=== PATIENT | female | born 1975 | race Asian ===

== ENCOUNTER 2019-02-04 06:49 | Inpatient (IN) | payer MEDICAID ==
[2019-01-31 15:57] LABS: BASOPHILS % (AUTO) 0.5 % (0-1); EOSINOPHILS # (AUTO) 0.1 X10'3 (0-0.9); EOSINOPHILS % (AUTO) 2.4 % (0-6); LYMPHOCYTES # (AUTO) 2.1 X10'3 (1.1-4.8); LYMPHOCYTES % (AUTO) 34.8 % (21-51); MEAN CORPUSCULAR HEMOGLOBIN 32.4 PG (27.0-31.0); MEAN CORPUSCULAR VOLUME 95.5 FL (78-98); MEAN PLATELET VOLUME 8.1 FL (7.4-10.4); MONOCYTES # (AUTO) 0.3 X10'3 (0-0.9); MONOCYTES % (AUTO) 4.9 % (2-12); NEUTROPHILS # (AUTO) 3.5 X10'3 (1.8-7.7); NEUTROPHILS % (AUTO) 57.4 % (42-75); PRE OP HEMATOCRIT 40.1 % (35.0-45.0); PRE OP HEMOGLOBIN 13.6 g/dL (12.0-16.0); PRE OP PLATELET COUNT 194 X10'3 (140-440); RED CELL DISTRIBUTION WIDTH 13.7 % (11.5-14.5)
[2019-01-31 16:11] LABS: PRE OP PROTIME 10.5 SECONDS (9.0-12.0)
[2019-01-31 16:12] LABS: CLARITY,URINE SLIGHTLY CLOUDY (Clear); COLOR,URINE STRAW (Yellow); GLUCOSE, URINE NEGATIVE (Neg); KETONES,URINE NEGATIVE (Neg); LEUKOCYTE ESTERASE ,URINE TRACE (Neg); NITRITES, URINE NEGATIVE (Neg); OCCULT BLOOD,URINE MODERATE (Neg); PH,URINE 5.5 (4.8-8.0); PROTEIN,URINE NEGATIVE (Neg); UROBILINOGEN,URINE 0.2 E.U/dL (0.2-1.0)
[2019-01-31 16:12] LABS: ALBUMIN/GLOBULIN RATIO 1.1 (1.1-1.5); ALKALINE PHOSPHATASE 42 IU/L (46-116); BLOOD UREA NITROGEN 16 MG/DL (7-18); BUN/CREATININE RATIO 21.9 (6.6-38.0); CALCIUM 8.5 MG/DL (8.5-10.1); CHLORIDE 105 MMOL/L (99-107); CREATININE 0.73 MG/DL (0.40-0.90); PRE OP ALT 21 U/L (30-65); PRE OP ANION GAP 6 (8-16); PRE OP AST 13 U/L (10-37); PRE OP BILIRUB, TOTAL 0.4 MG/DL (0.0-1.0); PRE OP GLUCOSE 102 MG/DL (70-104); PRE OP POTASSIUM 3.7 MMOL/L (3.4-5.1); PRE OP SODIUM 141 MMOL/L (135-145); TOTAL CARBON DIOXIDE 30.2 MMOL/L (24-32); TOTAL PROTEIN 7.6 G/DL (6.4-8.2); eGFR 87 ML/MIN
[2019-01-31 16:14] LABS: UA COLLECTION TYPE CLN CATCH MIDSTREAM
[2019-01-31 16:19] LABS: MUCUS STRANDS MANY /LPF (Neg); SQUAMOUS EPITHELIAL CELL,UR MANY /LPF (FEW)
[2019-01-31 16:20] LABS: TRANSITIONAL EPI CELLS,URINE FEW /HPF
[2019-01-31 16:21] LABS: HYALINE CASTS 0-3 /LPF (NEGATIVE)
[2019-01-31 16:23] LABS: BACTERIA,URINE 2+ /HPF (Neg); RBC,URINE 0-2 /HPF (0-2)
[2019-02-04] VITALS (17 sets, daily range): BP systolic 104–127; BP diastolic 53–78
[~2019-02-04] VITALS: Ht 167.6 cm; Wt 49.9 kg
[~2019-02-04 06:49] MED LIST: NO HOME MEDS; ceFOXitin 2 GM ADDVANTGE BAG 50 ML IV ONE; famotidine 10mg tablet PO ONE
[2019-02-04] MEDS: ringers solution, lacted 1,000 ML IV SCH ×2 (07:33→14:09)
[2019-02-04] MEDS ORDERED: BUPIVAcaine/PF 2.5 mg/ml (0.25%) 30ml vial ONE (08:01)
[2019-02-04] MEDS ORDERED: ringers solution, lacted 1,000 ML IV SCH (08:06)
[2019-02-04] MEDS ORDERED: proCHLORperazine 10 MG/2 ml inj IV PRN (08:10)
[2019-02-04] MEDS ORDERED: ketorolac trometh. 30mg/ml inj. IV ONE (08:10)
[2019-02-04] MEDS ORDERED: meperidine/PF 25mg/ml syringe IV PRN ×3 (08:10)
[2019-02-04] MEDS ORDERED: ondansetron/PF 4mg/2ml inj IV PRN (08:10)
[2019-02-04] MEDS ORDERED: morphine 4 MG/ML inj SYRINge IV PRN ×2 (08:10)
[2019-02-04] MEDS ORDERED: sevoflurane 250ml liquid IH ONE (08:16)
[2019-02-04] MEDS ORDERED: dexamethasone sod phosphate 10mg/ml inj ONE (08:16)
[2019-02-04] MEDS ORDERED: ondansetron/PF 4mg/2ml inj ONE (08:16)
[2019-02-04] MEDS ORDERED: midazolam 2 mg/2 ml injection ONE (08:19)
[2019-02-04] MEDS ORDERED: fentaNYL/PF 50MCG/1 ML 2ML syringe ONE (08:19)
[2019-02-04] MEDS ORDERED: propofol inj 20 ML IV ONE (08:21)
[2019-02-04] MEDS ORDERED: rocuronium 10mg/ml inj IV ONE (08:22)
[2019-02-04] MEDS ORDERED: acetaminophen 1,000mg/100ml IV 100 ML IV ONE (10:46)
--- NOTE | 2019-02-04 11:17 | NUR ---
Received from OR via SURGICAL BED , accompanied by Anesthesiologist JOLYNN and report given by Anesthesiolgist. PATIENT WITH 20G PIV IN RIGHT UE RUNNING LR AT 100. DENIES PAIN AT THIS TIME. LOW LATERAL ISLAND DRESSING PRESENT AND IS CDI. PATIENT WITH SCDS DONNED. 10L MASK ON WITH 100% SATURATIONS. Addendum: 02/04/19 at 1138 by Ronaldo Hernandez RN, RN Amended: Links added.
[2019-02-04] MEDS ORDERED: tranexamic acid inj. 1,000 MG in normal saline 100ml IV soln 100 ML IV ONE (11:25)
[2019-02-04 11:35] LABS: ISTAT ANION GAP 10 (8-12); ISTAT BUN 15 mg/dL (6-19); ISTAT CL 103 mmol/L (99-107); ISTAT CREATININE 0.6 mg/dL (0.6-1.1); ISTAT K 3.5 mmol/L (3.5-5.1); ISTAT NA 138 mmol/L (135-145); ISTAT TOTAL CO2 25 mmol/L (24-32); ISTAT eGFR > 90 ML/MIN
[2019-02-04 11:36] LABS: ISTAT GLUCOSE 152 mg/dL (70-104); ISTAT HGB 10.5 g/dl (12.0-16.0); ISTAT Hct 31 %PCV (35-48); ISTAT IONIZED CALCIUM 1.12 mmol/L (1.03-1.32)
[2019-02-04] MEDS ORDERED: naloxone 0.4 mg/ml inj IV PRN (12:00)
[2019-02-04] MEDS ORDERED: HYDROcodone/acetaminophen 10/325mg tab PO PRN (12:00)
[2019-02-04] MEDS ORDERED: normal saline 500ml IV soln 500 ML IV PRN (12:00)
[2019-02-04] MEDS ORDERED: CADD PCA waste documentation MC PRN (12:00)
[2019-02-04] MEDS ORDERED: HYDROcodone/acetaminophen 5mg/325mg tablet PO PRN (12:00)
[2019-02-04] MEDS ORDERED: mag hydrox/Alum hydrox/simeth 30ml oral suspension PO PRN (12:00)
[2019-02-04] MEDS ORDERED: LORazepam 2 mg/ml vial IV PRN (12:00)
[2019-02-04] MEDS ORDERED: magnesium hydroxide 30ml (MOM) UD suspension PO PRN (12:00)
[2019-02-04] MEDS ORDERED: temazepam 15mg capsule PO PRN (12:00)
--- NOTE | 2019-02-04 12:27 | NUR ---
ALL CRITERIA FOR TRANSFER TO THE FLOOR HAS BEEN ACHIEVED. VSS. BED LOW, CALL LIGHT AND VS. SET IN PLACE. RN PRESENT TO ACCEPT CARE. PATIENT RESTING COMFORTABLY IN BED. BELONGINGS SENT WITH PATIENT. DRESSINGS CDI. PATIENT LOW ANTERIOR ISLAND DRESSING STILL CDI CURRENTLY. RN PRESENT TO REASSESS. PATIENT MINIMALLY VERBAL TO QUESTIONS, WOULD NOT OFFER PAIN # WITHOUT MUCH COAXING. MEDICATED PRIOR TO DC TO FLOOR. PATIENTS RN PRESENT TO ACCEPT PATIENT. Addendum: 02/04/19 at 1239 by Ronaldo Smith - JASON RN Amended: Links added.
--- NOTE | 2019-02-04 13:03 | NUR ---
CADD MORPHINE IS NOT AVAILABLE FOR THIS PT. MESSAGED PHARMACY TO SEND. WILL SET UP WHEN IT IS AVAILABLE
--- NOTE | 2019-02-04 13:15 | NUR ---
Pt is quite groggy. will try to give mylecon chew when she is more alert
[2019-02-04] MEDS: morphine/NS 5 mg/ml CADD 50 ML IV SCH ×6 (13:34→23:00)
[2019-02-04] MEDS: simethicone 80mg chew tab PO SCH ×2 (15:14→20:21)
[2019-02-04 16:28] LABS: HEMATOCRIT 33.4 % (35.0-45.0); HEMOGLOBIN 11.3 g/dl (12.0-16.0); MEAN CORPUSCULAR HEMOGLOBIN 32.3 PG (27.0-31.0); MEAN CORPUSCULAR HGB CONC 33.8 g/dL (33.0-36.5); MEAN CORPUSCULAR VOLUME 95.5 FL (78-98); MEAN PLATELET VOLUME 8.2 FL (7.4-10.4); PLATELET COUNT 197 X10'3 (140-440); RED CELL DISTRIBUTION WIDTH 13.4 % (11.5-14.5); WHITE BLOOD COUNT 20.1 X10'3 (4.5-11.0)
[2019-02-04] MEDS: ceFAZolin 1GM/D5W- ADD-VANTAGE 50 ML IV SCH (16:31)
--- NOTE | 2019-02-04 18:10 | NUR ---
Problems reprioritized. Patient report given, questions answered & plan of care reviewed with mitzi dubose.
--- NOTE | 2019-02-04 18:54 | NUR ---
Patient in room [facility]. I have received report from JASON Wang and had the opportunity to ask questions and assume patient care.
[2019-02-04] MEDS ORDERED: ketorolac tromethamine 15mg/ml inj. IV PRN (19:10)
[2019-02-04] MEDS ORDERED: morphine/NS 5 mg/ml CADD 50 ML IV SCH ×2 (20:04→20:10)
[2019-02-04] MEDS: sennosides/docusate sodium tablet PO SCH (20:20)
[2019-02-04] MEDS: FAMOTIDINE IV SCH (20:25)
[2019-02-04] MEDS: NORMAL SALINE IV SCH (20:25)
[2019-02-05] VITALS: BP 108/72
[2019-02-05] MEDS: ceFAZolin 1GM/D5W- ADD-VANTAGE 50 ML IV SCH ×2 (00:18→09:25)
[2019-02-05] MEDS: morphine/NS 5 mg/ml CADD 50 ML IV SCH ×12 (01:00→23:00)
[2019-02-05] MEDS ORDERED: ringers solution, lacted 1,000 ML IV SCH (01:25)
[2019-02-05 03:56] VITALS: BP 103/63
[2019-02-05 05:40] LABS: ALANINE AMINOTRANSFERASE 18 U/L (12-78); ALBUMIN 3.1 G/DL (3.4-5.0); ALBUMIN/GLOBULIN RATIO 1.2 (1.1-1.5); ALKALINE PHOSPHATASE 37 IU/L (46-116); ANION GAP 5 (8-16); ASPARTATE AMINO TRANSFERASE 21 U/L (10-37); BILIRUBIN,TOTAL 0.8 MG/DL (0.1-1.0); BLOOD UREA NITROGEN 19 MG/DL (7-18); BUN/CREATININE RATIO 14.4 (6.6-38.0); CHLORIDE 102 MMOL/L (99-107); CREATININE 1.32 MG/DL (0.40-0.90); GLUCOSE 118 MG/DL (70-104); POTASSIUM 4.4 MMOL/L (3.5-5.1); SODIUM 134 MMOL/L (135-145); TOTAL CARBON DIOXIDE 26.7 MMOL/L (24-32); TOTAL PROTEIN 5.7 G/DL (6.4-8.2); eGFR 44 ML/MIN
[2019-02-05 05:59] LABS: BASOPHILS % (AUTO) 0.1 % (0-1); EOSINOPHILS % (AUTO) 0 % (0-6); HEMATOCRIT 29.4 % (35.0-45.0); HEMOGLOBIN 10.1 g/dl (12.0-16.0); LYMPHOCYTES # (AUTO) 1.6 X10'3 (1.1-4.8); LYMPHOCYTES % (AUTO) 9.3 % (21-51); MEAN CORPUSCULAR HEMOGLOBIN 32.6 PG (27.0-31.0); MEAN CORPUSCULAR HGB CONC 34.3 g/dL (33.0-36.5); MEAN PLATELET VOLUME 8.8 FL (7.4-10.4); MONOCYTES # (AUTO) 1.4 X10'3 (0-0.9); MONOCYTES % (AUTO) 8.2 % (2-12); NEUTROPHILS # (AUTO) 14.4 X10'3 (1.8-7.7); NEUTROPHILS % (AUTO) 82.4 % (42-75); PLATELET COUNT 187 X10'3 (140-440); RED CELL DISTRIBUTION WIDTH 13.7 % (11.5-14.5); WHITE BLOOD COUNT 17.5 X10'3 (4.5-11.0)
--- NOTE | 2019-02-05 06:09 | NUR ---
Problems reprioritized. Patient report given, questions answered & plan of care reviewed with JASON Wang.
[2019-02-05 07:00] VITALS: BP_SYST 106; BP_SYST 109; BP_DIAS 60; BP_DIAS 65
--- NOTE | 2019-02-05 09:00 | NUR ---
SENT A MESSAGE TO PHARMACY ASKING FOR PEPSI IV. NOT AVAILABLE TO ADMIN TO PT
[2019-02-05] MEDS: sennosides/docusate sodium tablet PO SCH ×2 (09:25→19:37)
[2019-02-05] MEDS: simethicone 80mg chew tab PO SCH ×3 (09:25→19:37)
[2019-02-05] MEDS: ondansetron/PF 4mg/2ml inj IV PRN ×2 (09:26→15:28)
[2019-02-05] MEDS: NORMAL SALINE IV SCH ×2 (10:27→21:13)
[2019-02-05] MEDS: FAMOTIDINE IV SCH ×2 (10:27→21:13)
[2019-02-05 11:30] LABS: BASOPHILS # (AUTO) 0.1 X10'3 (0-0.2); BASOPHILS % (AUTO) 0.7 % (0-1); EOSINOPHILS % (AUTO) 0.1 % (0-6); HEMATOCRIT 27.8 % (35.0-45.0); HEMOGLOBIN 9.5 g/dl (12.0-16.0); LYMPHOCYTES % (AUTO) 6.8 % (21-51); MEAN CORPUSCULAR HEMOGLOBIN 32.2 PG (27.0-31.0); MEAN CORPUSCULAR HGB CONC 34.3 g/dL (33.0-36.5); MEAN PLATELET VOLUME 8.6 FL (7.4-10.4); MONOCYTES # (AUTO) 0.8 X10'3 (0-0.9); MONOCYTES % (AUTO) 5.5 % (2-12); NEUTROPHILS # (AUTO) 12.8 X10'3 (1.8-7.7); NEUTROPHILS % (AUTO) 86.9 % (42-75); PLATELET COUNT 170 X10'3 (140-440); RED BLOOD COUNT 2.95 X10'6 (4.20-5.60); RED CELL DISTRIBUTION WIDTH 13.7 % (11.5-14.5); WHITE BLOOD COUNT 14.7 X10'3 (4.5-11.0)
[2019-02-05 11:34] LABS: ANION GAP 5 (8-16); BLOOD UREA NITROGEN 20 MG/DL (7-18); BUN/CREATININE RATIO 15.3 (6.6-38.0); CALCIUM 7.5 MG/DL (8.5-10.1); CHLORIDE 101 MMOL/L (99-107); CREATININE 1.31 MG/DL (0.40-0.90); GLUCOSE 123 MG/DL (70-104); POTASSIUM 4.1 MMOL/L (3.5-5.1); SODIUM 132 MMOL/L (135-145); eGFR 44 ML/MIN
[2019-02-05 11:35] LABS: ALANINE AMINOTRANSFERASE 19 U/L (12-78); ALBUMIN 2.8 G/DL (3.4-5.0); ALBUMIN/GLOBULIN RATIO 1.1 (1.1-1.5); ALKALINE PHOSPHATASE 35 IU/L (46-116); ASPARTATE AMINO TRANSFERASE 23 U/L (10-37); BILIRUBIN,TOTAL 0.8 MG/DL (0.1-1.0); TOTAL PROTEIN 5.4 G/DL (6.4-8.2)
[2019-02-05] MEDS ORDERED: metoclopramide 5 mg/ml inj IV PRN (11:50)
[2019-02-05 16:32] LABS: BASOPHILS # (AUTO) 0.2 X10'3 (0-0.2); BASOPHILS % (AUTO) 1.8 % (0-1); EOSINOPHILS % (AUTO) 0.1 % (0-6); HEMATOCRIT 27.1 % (35.0-45.0); HEMOGLOBIN 9.4 g/dl (12.0-16.0); LYMPHOCYTES # (AUTO) 0.9 X10'3 (1.1-4.8); LYMPHOCYTES % (AUTO) 6.4 % (21-51); MEAN CORPUSCULAR HEMOGLOBIN 32.5 PG (27.0-31.0); MEAN CORPUSCULAR HGB CONC 34.8 g/dL (33.0-36.5); MEAN CORPUSCULAR VOLUME 93.5 FL (78-98); MEAN PLATELET VOLUME 8.4 FL (7.4-10.4); MONOCYTES # (AUTO) 0.5 X10'3 (0-0.9); MONOCYTES % (AUTO) 3.4 % (2-12); NEUTROPHILS # (AUTO) 12.1 X10'3 (1.8-7.7); NEUTROPHILS % (AUTO) 88.3 % (42-75); PLATELET COUNT 163 X10'3 (140-440); RED CELL DISTRIBUTION WIDTH 13.6 % (11.5-14.5); WHITE BLOOD COUNT 13.7 X10'3 (4.5-11.0)
[2019-02-05 16:48] LABS: ALANINE AMINOTRANSFERASE 19 U/L (12-78); ALBUMIN 2.8 G/DL (3.4-5.0); ALBUMIN/GLOBULIN RATIO 1.1 (1.1-1.5); ALKALINE PHOSPHATASE 40 IU/L (46-116); ANION GAP 5 (8-16); ASPARTATE AMINO TRANSFERASE 24 U/L (10-37); BILIRUBIN,TOTAL 0.9 MG/DL (0.1-1.0); BLOOD UREA NITROGEN 17 MG/DL (7-18); BUN/CREATININE RATIO 12.6 (6.6-38.0); CALCIUM 7.5 MG/DL (8.5-10.1); CHLORIDE 99 MMOL/L (99-107); CREATININE 1.35 MG/DL (0.40-0.90); GLUCOSE 115 MG/DL (70-104); POTASSIUM 4.5 MMOL/L (3.5-5.1); SODIUM 131 MMOL/L (135-145); TOTAL CARBON DIOXIDE 27.4 MMOL/L (24-32); TOTAL PROTEIN 5.4 G/DL (6.4-8.2); eGFR 43 ML/MIN
--- NOTE | 2019-02-05 18:22 | NUR ---
Problems reprioritized. Patient report given, questions answered & plan of care reviewed with WONG GOMEZ.
[2019-02-05 18:30] VITALS: BP 110/74
--- NOTE | 2019-02-05 18:42 | NUR ---
Received report from Kathleen GOMEZ pt is laying in bed, visitor at bedside, in no apparent distress, call light and items of freq use within reach
[2019-02-05] MEDS: normal saline 1000ml 1,000 ML IV SCH (19:40)
[2019-02-06] VITALS: BP 113/72
[2019-02-06] MEDS: morphine/NS 5 mg/ml CADD 50 ML IV SCH ×12 (01:00→23:00)
[2019-02-06] MEDS: normal saline 1000ml 1,000 ML IV SCH ×3 (05:23→17:13)
[2019-02-06 05:29] LABS: ALANINE AMINOTRANSFERASE 16 U/L (12-78); ALBUMIN 2.8 G/DL (3.4-5.0); ALKALINE PHOSPHATASE 50 IU/L (46-116); ANION GAP 5 (8-16); ASPARTATE AMINO TRANSFERASE 20 U/L (10-37); BILIRUBIN,TOTAL 0.8 MG/DL (0.1-1.0); BLOOD UREA NITROGEN 16 MG/DL (7-18); BUN/CREATININE RATIO 11.9 (6.6-38.0); CALCIUM 7.8 MG/DL (8.5-10.1); CHLORIDE 102 MMOL/L (99-107); CREATININE 1.34 MG/DL (0.40-0.90); GLUCOSE 116 MG/DL (70-104); SODIUM 134 MMOL/L (135-145); TOTAL CARBON DIOXIDE 27.4 MMOL/L (24-32); TOTAL PROTEIN 5.6 G/DL (6.4-8.2); eGFR 43 ML/MIN
[2019-02-06 06:00] LABS: BASOPHILS % (AUTO) 0 % (0-1); EOSINOPHILS % (AUTO) 0.2 % (0-6); HEMATOCRIT 28.6 % (35.0-45.0); HEMOGLOBIN 9.8 g/dl (12.0-16.0); LYMPHOCYTES # (AUTO) 0.8 X10'3 (1.1-4.8); LYMPHOCYTES % (AUTO) 7.2 % (21-51); MEAN CORPUSCULAR HEMOGLOBIN 32.7 PG (27.0-31.0); MEAN CORPUSCULAR HGB CONC 34.2 g/dL (33.0-36.5); MEAN CORPUSCULAR VOLUME 95.6 FL (78-98); MEAN PLATELET VOLUME 8.7 FL (7.4-10.4); MONOCYTES # (AUTO) 0.7 X10'3 (0-0.9); MONOCYTES % (AUTO) 5.8 % (2-12); NEUTROPHILS # (AUTO) 9.8 X10'3 (1.8-7.7); NEUTROPHILS % (AUTO) 86.8 % (42-75); PLATELET COUNT 171 X10'3 (140-440); RED CELL DISTRIBUTION WIDTH 13.7 % (11.5-14.5); WHITE BLOOD COUNT 11.3 X10'3 (4.5-11.0)
--- NOTE | 2019-02-06 06:43 | NUR ---
Gave report to Fauzia GOMEZ pt is resting on RA, in no apparent distress, call light and items of freq use within reach.
[2019-02-06 07:00] VITALS: BP 113/74
[2019-02-06] MEDS: FAMOTIDINE IV SCH ×2 (07:30→20:01)
[2019-02-06] MEDS: NORMAL SALINE IV SCH ×2 (07:30→20:01)
[2019-02-06] MEDS: sennosides/docusate sodium tablet PO SCH ×2 (07:31→20:00)
[2019-02-06] MEDS: simethicone 80mg chew tab PO SCH ×3 (07:31→17:15)
--- NOTE | 2019-02-06 10:23 | NUR ---
PICKED UP FOR CT SCAN.
[2019-02-06] MEDS: proCHLORperazine 10 MG/2 ml inj IV PRN ×2 (12:15→23:42)
[2019-02-06 12:34] VITALS: BP 119/76
[2019-02-06] MEDS: metoclopramide 5 mg/ml inj IV SCH ×2 (13:18→20:02)
--- NOTE | 2019-02-06 13:28 | NUR ---
mays catheter dc'd per MD order. Patient tolerated well.
--- NOTE | 2019-02-06 18:23 | NUR ---
Problems reprioritized. Patient report given, questions answered & plan of care reviewed with JASON Mitchell.
[2019-02-06] MEDS: ondansetron/PF 4mg/2ml inj IV PRN (18:45)
[2019-02-06 20:00] VITALS: BP 125/74
--- NOTE | 2019-02-06 22:22 | NUR ---
Patient in room [facility]. I have received report from JASON Cage and had the opportunity to ask questions and assume patient care. Addendum: 02/06/19 at 2223 by Marisa Bhatia RN Amended: Links added.
[2019-02-06 23:52] VITALS: BP 103/66
[2019-02-07] MEDS: morphine/NS 5 mg/ml CADD 50 ML IV SCH ×5 (01:00→09:00)
[2019-02-07] MEDS: metoclopramide 5 mg/ml inj IV SCH ×4 (02:12→19:33)
[2019-02-07] MEDS: normal saline 1000ml 1,000 ML IV SCH ×3 (02:17→19:33)
[2019-02-07 06:00] VITALS: BP 114/77
--- NOTE | 2019-02-07 06:38 | NUR ---
Problems reprioritized. Patient report given, questions answered & plan of care reviewed with JASON Cuellar. Addendum: 02/07/19 at 0639 by Marisa Bhatia RN Amended: Links added.
--- NOTE | 2019-02-07 06:49 | NUR ---
Patient in room [facility]. I have received report from JASON Cunningham and had the opportunity to ask questions and assume patient care.
[2019-02-07] MEDS: simethicone 80mg chew tab PO SCH ×6 (08:00→18:04)
[2019-02-07] MEDS: sennosides/docusate sodium tablet PO SCH ×4 (08:00→19:33)
[2019-02-07] MEDS: FAMOTIDINE IV SCH ×2 (09:31→19:33)
[2019-02-07] MEDS: NORMAL SALINE IV SCH ×2 (09:31→19:33)
[2019-02-07 11:00] VITALS: BP 117/76
[2019-02-07] MEDS ORDERED: morphine 2 MG/ML inj. syringe IV PRN ×2 (11:00)
[2019-02-07] MEDS: methylnaltrexone br 12mg/0.6ml inj***SubQ only SQ SCH (11:45)
--- NOTE | 2019-02-07 18:30 | NUR ---
Problems reprioritized. Patient report given, questions answered & plan of care reviewed with JASON Cunningham.
[2019-02-07 20:00] VITALS: BP 126/80
--- NOTE | 2019-02-07 22:07 | NUR ---
Patient in room [facility]. I have received report from JASON Cuellar and had the opportunity to ask questions and assume patient care. Addendum: 02/07/19 at 2207 by Marisa Bhatia RN Amended: Links added.
[2019-02-08] VITALS: BP 111/72
[2019-02-08] MEDS: metoclopramide 5 mg/ml inj IV SCH ×3 (02:12→13:28)
[2019-02-08 05:29] LABS: BASOPHILS % (AUTO) 0.2 % (0-1); EOSINOPHILS % (AUTO) 0.6 % (0-6); HEMATOCRIT 24.2 % (35.0-45.0); HEMOGLOBIN 8.5 g/dl (12.0-16.0); LYMPHOCYTES # (AUTO) 0.8 X10'3 (1.1-4.8); LYMPHOCYTES % (AUTO) 11.3 % (21-51); MEAN CORPUSCULAR HGB CONC 35.4 g/dL (33.0-36.5); MEAN CORPUSCULAR VOLUME 93.4 FL (78-98); MONOCYTES # (AUTO) 0.8 X10'3 (0-0.9); MONOCYTES % (AUTO) 11.2 % (2-12); NEUTROPHILS # (AUTO) 5.5 X10'3 (1.8-7.7); NEUTROPHILS % (AUTO) 76.7 % (42-75); PLATELET COUNT 204 X10'3 (140-440); RED BLOOD COUNT 2.59 X10'6 (4.20-5.60); RED CELL DISTRIBUTION WIDTH 13.5 % (11.5-14.5); WHITE BLOOD COUNT 7.1 X10'3 (4.5-11.0)
[2019-02-08 05:40] LABS: ALANINE AMINOTRANSFERASE 14 U/L (12-78); ALBUMIN 2.3 G/DL (3.4-5.0); ALBUMIN/GLOBULIN RATIO 0.8 (1.1-1.5); ALKALINE PHOSPHATASE 41 IU/L (46-116); ANION GAP 7 (8-16); ASPARTATE AMINO TRANSFERASE 11 U/L (10-37); BILIRUBIN,TOTAL 0.7 MG/DL (0.1-1.0); BLOOD UREA NITROGEN 18 MG/DL (7-18); BUN/CREATININE RATIO 19.4 (6.6-38.0); CALCIUM 7.6 MG/DL (8.5-10.1); CHLORIDE 105 MMOL/L (99-107); CREATININE 0.93 MG/DL (0.40-0.90); GLUCOSE 94 MG/DL (70-104); POTASSIUM 3.6 MMOL/L (3.5-5.1); SODIUM 136 MMOL/L (135-145); TOTAL CARBON DIOXIDE 23.6 MMOL/L (24-32); TOTAL PROTEIN 5.1 G/DL (6.4-8.2); eGFR 65 ML/MIN
--- NOTE | 2019-02-08 06:17 | NUR ---
Problems reprioritized. Patient report given, questions answered & plan of care reviewed with JASON Ortiz. Addendum: 02/08/19 at 0617 by Marisa Bhatia RN Amended: Links added.
[2019-02-08 07:19] VITALS: BP 117/76
[2019-02-08] MEDS: NORMAL SALINE IV SCH (10:05)
[2019-02-08] MEDS: FAMOTIDINE IV SCH (10:05)
[2019-02-08] MEDS: simethicone 80mg chew tab PO SCH ×3 (10:06→17:32)
[2019-02-08] MEDS: sennosides/docusate sodium tablet PO SCH ×2 (10:16→20:00)
[2019-02-08 11:00] VITALS: BP 126/85
--- NOTE | 2019-02-08 11:01 | NUR ---
Spoke to MD Shabazz this AM. She is noticing an improvement in medical condition and is considering a discharge. Requesting home health and home PT for pt as pt. does not feel comfortable going home without care. Spoke with case management Tiffany. Tiffany is not sure when the home health nurse will be able to make it to pt.'s house r/t holiday but she is working on the process. Pt. states she feels uncomfortable going home because she "will not have nursing to check on her constantly and will not have a call light". She is also concerned that she has not eaten a full meal without becoming nauseous. Pt. does have positive BS, passing gas and has had a small loose BM this AM. She states she has not been nauseous this AM, but that her 14 yo son will not be able to handle her coming home. MD Vazquez made aware. See new orders. Will continue to monitor case management results and notify MD Shabazz of any changes.
[2019-02-08] MEDS: HYDROcodone/acetaminophen 10/325mg tab PO PRN (13:28)
--- NOTE | 2019-02-08 16:16 | NUR ---
Nutrition consult re: "pt not eating, education on proper diet for healing". Pt s/p abdominal hysterectomy with extensive lysis of adhesions, debulking of stage IV endometriosis, bilateral salpingo-oophorectomy per MD note. Patient's diet was just advanced to regular, previously on full liquid diet. No documentation of PO intake since admit. D/w RN who reports pt isn't eating well likely d/t food preferences. Pt seen at bedside reports a low appetite but that it's improving. Pt reports she doesn't like foods that are too crunchy, too hot, or too cold. Pt agreeable to soft food TID and room temperature beverages. Pt also requests steamed vegetables rather than cold side items such as salads. Food preferences d/w dietary. RD encouraged PO intake of meals. Pt reports fear of getting nauseous after eating. Per RN pt receiving antinausea medication which is confirmed in med list. Pt denies any food allergies or difficulty chewing/swallowing. Last documented BM is 02/04 however pt reports diarrhea with two BMs today. Pt agrees to applesauce with dinner tonight, d/w dietary. RD contact information provided. Will continue to follow. Addendum: 02/08/19 at [address] Amended: Links added.
[2019-02-08] MEDS ORDERED: LORazepam 1 MG tablet PO PRN (17:40)
--- NOTE | 2019-02-08 19:05 | NUR ---
Gave report to Marisa GOMEZ
[2019-02-08 20:00] VITALS: BP 111/85
[2019-02-08] MEDS ORDERED: metoclopramide 10mg tablet PO PRN (20:00)
[2019-02-08] MEDS: famotidine 10mg tablet PO SCH (20:04)
--- NOTE | 2019-02-08 20:11 | NUR ---
PT HAS NO IV ACCESS WHEN ASSESSED
--- NOTE | 2019-02-08 20:38 | NUR ---
Patient in room [facility]. I have received report from JASON Ortiz and had the opportunity to ask questions and assume patient care. Addendum: 02/08/19 at 2038 by Marisa Bhatia RN Amended: Links added.
--- NOTE | 2019-02-08 21:15 | NUR ---
Problems reprioritized. Patient report given, questions answered & plan of care reviewed with Bess Bradshaw RN. Addendum: 02/08/19 at 2117 by Marisa Bhatia RN Amended: Links added.
[2019-02-09] VITALS: BP 114/77
[2019-02-09 06:21] LABS: BASOPHILS % (AUTO) 0.3 % (0-1); EOSINOPHILS # (AUTO) 0.1 X10'3 (0-0.9); EOSINOPHILS % (AUTO) 2.1 % (0-6); HEMATOCRIT 23.5 % (35.0-45.0); HEMOGLOBIN 8.2 g/dl (12.0-16.0); LYMPHOCYTES # (AUTO) 0.8 X10'3 (1.1-4.8); LYMPHOCYTES % (AUTO) 15.6 % (21-51); MEAN CORPUSCULAR HEMOGLOBIN 32.9 PG (27.0-31.0); MEAN CORPUSCULAR HGB CONC 34.7 g/dL (33.0-36.5); MEAN CORPUSCULAR VOLUME 94.8 FL (78-98); MONOCYTES # (AUTO) 0.7 X10'3 (0-0.9); MONOCYTES % (AUTO) 12.8 % (2-12); NEUTROPHILS # (AUTO) 3.6 X10'3 (1.8-7.7); NEUTROPHILS % (AUTO) 69.2 % (42-75); PLATELET COUNT 211 X10'3 (140-440); RED BLOOD COUNT 2.48 X10'6 (4.20-5.60); RED CELL DISTRIBUTION WIDTH 13.4 % (11.5-14.5); WHITE BLOOD COUNT 5.2 X10'3 (4.5-11.0)
--- NOTE | 2019-02-09 06:38 | NUR ---
Problems reprioritized. Patient report given, questions answered & plan of care reviewed with JASON Ho.
--- NOTE | 2019-02-09 06:39 | NUR ---
Patient in room [facility]. I have received report from Bess Bradshaw RN and had the opportunity to ask questions and assume patient care.
[2019-02-09 06:47] LABS: ALANINE AMINOTRANSFERASE 13 U/L (12-78); ALBUMIN 2.2 G/DL (3.4-5.0); ALBUMIN/GLOBULIN RATIO 0.8 (1.1-1.5); ALKALINE PHOSPHATASE 36 IU/L (46-116); ANION GAP 6 (8-16); ASPARTATE AMINO TRANSFERASE 12 U/L (10-37); BILIRUBIN,TOTAL 0.5 MG/DL (0.1-1.0); BLOOD UREA NITROGEN 13 MG/DL (7-18); CALCIUM 7.5 MG/DL (8.5-10.1); CHLORIDE 103 MMOL/L (99-107); GLUCOSE 86 MG/DL (70-104); POTASSIUM 3.2 MMOL/L (3.5-5.1); SODIUM 135 MMOL/L (135-145); TOTAL CARBON DIOXIDE 26.3 MMOL/L (24-32); eGFR 60 ML/MIN
[2019-02-09 06:58] VITALS: BP 105/65
[2019-02-09] MEDS: methylnaltrexone br 12mg/0.6ml inj***SubQ only SQ SCH (08:00)
[2019-02-09] MEDS: sennosides/docusate sodium tablet PO SCH (08:00)
[2019-02-09] MEDS: HYDROcodone/acetaminophen 10/325mg tab PO PRN (09:01)
[2019-02-09] MEDS: simethicone 80mg chew tab PO SCH (09:01)
[2019-02-09] MEDS: famotidine 10mg tablet PO SCH (09:02)
[2019-02-09] MEDS ORDERED: potassium CL 10mEq/100ml bag 100 ML IV PRN (09:30)
[2019-02-09] MEDS ORDERED: magnesium Cl slow-release 64mg tablet PO PRN (09:30)
[2019-02-09] MEDS ORDERED: potassium Cl 20 mEq SR tablet PO PRN ×2 (09:30)
[2019-02-09] MEDS ORDERED: magnesium 4gm in 100ml NS 100 ML IV PRN (09:30)
--- NOTE | 2019-02-09 13:33 | NUR ---
Patient D/C'd home by Dr Shabazz. patient in stable condition. Walker sent home with patient to assist with ambulation. Discharge and medication instruction given. Patient left the hospital via private vehicle accompanied by family member.
[2019-02-10] MEDS ORDERED: K and/or MAG REPLACEMENT MC SCH (08:00)
== END 2019-02-09 13:00 | disposition home or self-care (01) | DRG 519 ==
LOC: PAS 06:49 → SUR 3N 11:59
PROVIDERS: ADMIT Obstetrics & Gynecology; ATTEND Obstetrics & Gynecology
PROC: 0DNW0ZZ Release Peritoneum, Open Approach (ICD-10-PCS; 2019-02-04)
PROC: 0TJB8ZZ Inspection of Bladder, Via Natural or Artificial Opening Endoscopic (ICD-10-PCS; 2019-02-04)
PROC: 0UT10ZZ Resection of Left Ovary, Open Approach (ICD-10-PCS; 2019-02-04)
PROC: 0UT60ZZ Resection of Left Fallopian Tube, Open Approach (ICD-10-PCS; 2019-02-04)
PROC: 0UT90ZZ Resection of Uterus, Open Approach (ICD-10-PCS; principal; 2019-02-04 08:16)
DX: D25.9 Leiomyoma of uterus, unspecified (principal); N17.9 Acute kidney failure, unspecified; E87.1 Hypo-osmolality and hyponatremia; D62 Acute posthemorrhagic anemia; N80.9 Endometriosis, unspecified; D72.829 Elevated white blood cell count, unspecified; K66.0 Peritoneal adhesions (postprocedural) (postinfection); N92.1 Excessive and frequent menstruation with irregular cycle
CPT/HCPCS: 36415; 74176; 76830; 76856; 80047; 80053; 81001; 82948; 85025; 85027; 85610; 85730; 86885; 86900; 86901; 87040; 97116; 97161; 97530; A4618; A6258; A6402; A7000; C1758; G0378; J0131; J0690; J0694; J0780; J1100; J1885; J2175; J2212; J2250; J2270; J2405; J2704; J2765; J3010; J3490; J7030; J7120